=== PATIENT | female | born 1985 | race Caucasian/White ===

== ENCOUNTER → 2023-09-27 10:26 | Outpatient (CLI) | payer OTHER, SELFPAY ==
[2023-09-27 16:27] LABS: Influenza A - CEPHEID Flu A NEGATIVE (NEGATIVE)
[2023-09-27 16:28] LABS: COVID-19 CEPHEID 4-PLEX PCR Negative (Negative); Influenza B - CEPHEID Flu B NEGATIVE (NEGATIVE); Respiratory Syncytial Virus Negative (Negative)
== END ==
PROVIDERS: Referring Provider Physician Assistant Surgical; Visit Provider Physician Assistant Surgical
DX: R05.9 Cough, unspecified (principal)
CPT/HCPCS: 0241U

== ENCOUNTER → 2023-10-21 10:28 | Outpatient (CLI) | payer OTHER, SELFPAY ==
--- NOTE | 2023-10-21 10:31 | DI.MRI.S_ITS ---
PROCEDURE: MR ABDOMEN LIVER PROTOCOL INDICATIONS: LIVER LESION TECHNIQUE: Coronal HASTE, axial 2D FLASH in- and [id number]; axial breath-hold T2 FSE. Dynamic axial VIBE during the administration of contrast; post-contrast coronal VIBE or 2D FLASH with fat saturation from the hepatic dome to the iliac crests. Restricted diffusion weighted imaging and ADC. 20 cc ProHance IV contrast. COMPARISON: None. FINDINGS: Image quality: Diagnostic. Lung bases: Unremarkable. Liver: Segment 8 hemangioma measuring 2.4 x 2 cm, (4/20). No restricted diffusion. Gallbladder: No gallstones or wall thickening. Biliary ducts: No biliary dilation. Pancreas: No ductal dilation. Spleen: Size is within normal limits. Adrenal Glands: No adrenal nodules. Kidneys and Ureters: No hydronephrosis. No solid mass. No complex renal cystic lesion which requires follow up. Stomach and Bowel: Normal colonic caliber, without significant wall thickening. Peritoneum: No abnormal intraperitoneal fluid. No free air. Ventral Wall: No hernia. Abdominal Nodes: No retroperitoneal or mesenteric adenopathy by size criteria. Vessels: Aorta and inferior vena cava are normal in size. Bones: No aggressive osseous abnormality. IMPRESSION: Benign hemangioma in segment 8 of the liver measuring 2.4 cm. Dictated by: Herrera Fierro M.D. on 10/21/2023 at 12:39 Approved by: Herrera Fierro M.D. on 10/21/2023 at 12:44
== END ==
LOC: MRI 10:30
PROVIDERS: PCP Registered Nurse
DX: K76.9 Liver disease, unspecified (principal); D18.09 Hemangioma of other sites
CPT/HCPCS: 74183; A9579

== ENCOUNTER → 2024-05-18 08:50 | Outpatient (CLI) | payer OTHER, SELFPAY ==
--- NOTE | 2024-05-18 08:53 | DI.RAD.S_ITS ---
PROCEDURE: XR CHEST 2V INDICATIONS: Pneumonia, unspecified organism TECHNIQUE: 2 views of the chest were acquired. COMPARISON: None. FINDINGS: Surgical changes and devices: None. Lungs and pleura: Lungs are clear. No pleural effusions or pneumothorax. Mediastinum: Mediastinal contours are normal. Heart size is normal. Bones and chest wall: No suspicious bony abnormalities. Soft tissues appear unremarkable. IMPRESSION: No acute cardiothoracic process. Dictated by: Zoran Rushing M.D. on 05/18/2024 at 13:24 Approved by: Zoran Rushing M.D. on 05/18/2024 at 13:25
== END ==
PROVIDERS: PCP Registered Nurse; Referring Provider Registered Nurse; Visit Provider Registered Nurse
DX: J18.9 Pneumonia, unspecified organism (principal)
CPT/HCPCS: 71046

== ENCOUNTER → 2024-08-12 09:19 | Outpatient (CLI) | payer OTHER, SELFPAY ==
--- NOTE | 2024-08-12 09:21 | DI.MG.S_ITS ---
MM screening mammo BI: 08/12/2024. BI-RADS: 0 CLINICAL: 39-year old female for bilateral screening mammogram. Tyrer-Cuzick lifetime risk of 22.9%. Current reported family history of breast cancer: mother. The patient is status-post reduction mammoplasty. PRIOR EXAMS: 09/13/2021. MAMMOGRAPHY TECHNIQUE: 2D and 3D (tomosynthesis) digital mammographic views obtained, with additional images as needed for full coverage. Current study was also evaluated with a Computer Aided Detection (CAD) system. DENSITY B. There are scattered areas of fibroglandular density. MAMMOGRAPHY FINDINGS Right: Outer Central, Anterior depth: There is a focal asymmetry present with associated calcifications. Additional imaging evaluation needed. Left: No suspicious mass, asymmetry, microcalcification, or other abnormality seen. IMPRESSION: Right (Asymmetry): Outer Central, Anterior depth * Incomplete - Needs additional imaging evaluation. Left * No evidence of malignancy. RECOMMENDATIONS Right: Outer Central, Anterior depth * Further evaluation with diagnostic mammography and diagnostic ultrasound. Ultrasound to be performed only if needed. OVERALL ASSESSMENT CATEGORY BI-RADS-0: Incomplete - Need Additional Imaging Evaluation. ELECTRONICALLY SIGNED: Afia Persaud M.D. on 08/14/2024 at 01:56:46 PM PT Interpreting Station ID: [id number]
[2024-08-12 10:23] LABS: Hemoglobin A1C% w Est Avg Glu 5.2 % (4.0-6.0)
[2024-08-12 10:33] LABS: Alanine Aminotransferase 74 IU/L (<35); Albumin 4.4 g/dL (3.5-5.0); Albumin Globulin Ratio 1.8 (1.0-2.8); Alkaline Phosphatase 53 U/L (38-126); Aspartate Aminotransferase 53 IU/L (14-36); BUN Creatinine Ratio 17.9 (6-22); Bilirubin Total 0.5 mg/dL (0.2-1.3); Blood Urea Nitrogen 14 mg/dL (7-17); Calcium 9.1 mg/dL (8.4-10.2); Carbon Dioxide 25 mmol/L (22-32); Chloride 106 mmol/L (98-107); Estimated Glomerular Filt Rate > 60 mL/min (>60); Globulin 2.5 g/dL (1.7-4.1); Glucose 102 mg/dL (70-99); HEMOLYSIS < 15 (0-50); Potassium 4.3 mmol/L (3.4-5.1); Sodium 139 mmol/L (137-145); Total Protein 6.9 g/dL (6.3-8.2)
[2024-08-12 10:33] LABS: Cholesterol 263 mg/dL (140-199); HDL Cholesterol 56 mg/dL (40-60); LDL Cholesterol Calculated 180 mg/dL (<100); Triglycerides 133 mg/dL (35-150)
[2024-08-12 10:46] LABS: Vitamin D 25 Hydroxy (D3) 46.5 ng/mL (30.0-100.0)
== END ==
PROVIDERS: PCP Nurse Practitioner Family; Referring Provider Nurse Practitioner Family; Visit Provider Nurse Practitioner Family
DX: Z12.31 Encounter for screening mammogram for malignant neoplasm of breast (principal); Z80.3 Family history of malignant neoplasm of breast; Z83.42 Family history of familial hypercholesterolemia
CPT/HCPCS: 36415; 77063; 77067; 80053; 80061; 82306; 83036

== ENCOUNTER → 2024-09-15 12:07 | Outpatient (CLI) | payer OTHER, SELFPAY ==
--- NOTE | 2024-09-15 12:09 | DI.MG.S_ITS ---
MM diagnostic mammo unilat RT: 09/15/2024. BI-RADS: 3 CLINICAL: 39-year old female for right diagnostic mammogram that is a recall from screening on 08/12/2024. Tyrer-Cuzick lifetime risk of 22.9%. Current reported family history of breast cancer: mother. The patient is status-post reduction mammoplasty in 2021. PRIOR EXAMS Mammogram(s): 08/12/2024. MAMMOGRAPHY TECHNIQUE: 2D and 3D (tomosynthesis) digital mammographic views obtained, with additional images as needed for full coverage. Current study was also evaluated with a Computer Aided Detection (CAD) system. DENSITY Right: B. There are scattered areas of fibroglandular density. MAMMOGRAPHY FINDINGS Right: Outer Central: There are probably-benign grouped coarse calcifications. There are two closely adjacent grouped coarse calcifications together spanning 2.2 cm. These are probably benign and related to prior reduction mammoplasty. The previously described associated focal asymmetry did not persist with additional imaging and is consistent with superimposition of normal breast tissue. IMPRESSION: Right (Calcification): Outer Central * Probably Benign. RECOMMENDATIONS Right: Outer Central, Anterior depth * Six month followup with diagnostic mammography. COMMENTS: Findings and recommendations were conveyed to the patient during today's evaluation. OVERALL ASSESSMENT CATEGORY BI-RADS-3: Probably Benign. ELECTRONICALLY SIGNED: Afia Persaud M.D. on 09/15/2024 at 02:53:30 PM PT Interpreting Station ID: [id number]
== END ==
PROVIDERS: PCP Nurse Practitioner Family; Referring Provider Nurse Practitioner Family; Visit Provider Nurse Practitioner Family
DX: R92.1 Mammographic calcification found on diagnostic imaging of breast (principal); N64.89 Other specified disorders of breast; Z80.3 Family history of malignant neoplasm of breast
CPT/HCPCS: 77065; G0279

== ENCOUNTER → 2025-03-26 10:36 | Outpatient (CLI) | payer OTHER, SELFPAY ==
--- NOTE | 2025-03-26 10:37 | DI.MRI.S_ITS ---
MR breast BI wo/w con: 03/26/2025. BI-RADS: 2 CLINICAL: 40-year old female for bilateral diagnostic breast MRI. Current reported family history of breast cancer: mother. The patient is status-post reduction mammoplasty. PRIOR EXAMS Mammogram(s): 09/15/2024, 08/12/2024. MRI TECHNIQUE Bilateral breast MRI was performed on a 1.5 Shannan magnet using a dedicated breast coil with mild compression. Axial T1 and T2 STIR sequences were obtained. Dynamic contrast enhanced VIBRANT fat-suppressed sequences were obtained. Delayed sagittal high resolution or sagittal reconstructed isotropic sequence was also obtained. Subtraction images and maximum intensity projection images were obtained. The study was evaluated using [employer] software. IV Contrast: 20 ml ProHance. FIBROGLANDULAR TISSUE Bilateral: B. Scattered fibroglandular tissue. BACKGROUND PARENCHYMAL ENHANCEMENT Bilateral: Mild symmetrical background parenchymal enhancement. BREAST FINDINGS Bilateral Benign-appearing post-surgical changes noted. There is no suspicious finding with benign findings noted. There are no abnormal axillary or internal mammary lymph nodes. ABDOMEN FINDINGS A benign hemangioma is incidentally noted in the right hepatic lobe. IMPRESSION: * No evidence of malignancy with benign findings. RECOMMENDATIONS Bilateral * Annual screening mammography in five months. OVERALL ASSESSMENT CATEGORY BI-RADS-2: Benign. ELECTRONICALLY SIGNED: Kingsley Pritchard M.D. on 03/26/2025 at 09:09:04 PM PT Interpreting Station ID: [id number]
== END ==
LOC: MRI 10:37
PROVIDERS: PCP Nurse Practitioner Family; Referring Provider Nurse Practitioner Family; Visit Provider Nurse Practitioner Family
DX: N64.89 Other specified disorders of breast (principal); R92.323 Mammographic fibroglandular density, bilateral breasts; D18.03 Hemangioma of intra-abdominal structures; Z80.3 Family history of malignant neoplasm of breast
CPT/HCPCS: 77049; A9579

== ENCOUNTER → 2025-04-19 09:42 | Outpatient (CLI) | payer OTHER, SELFPAY ==
--- NOTE | 2025-04-19 09:46 | DI.MG.S_ITS ---
MM diagnostic mammo unilat RT: 04/19/2025. BI-RADS: 3 CLINICAL: 40-year old female for right diagnostic mammogram that is a follow-up to diagnostic mammogram on 09/15/2024. The patient presents for a follow-up. Tyrer- Cuzick lifetime risk of 22.8%. Current reported family history of breast cancer: mother. The patient is status-post reduction mammoplasty. PRIOR EXAMS Mammogram(s): 09/15/2024, 08/12/2024, 09/13/2021. Breast MRI(s): 03/26/2025. MAMMOGRAPHY TECHNIQUE: 2D and 3D (tomosynthesis) digital mammographic views obtained, with additional images as needed for full coverage. Current study was also evaluated with a Computer Aided Detection (CAD) system. DENSITY Right: B. There are scattered areas of fibroglandular density. MAMMOGRAPHY FINDINGS Right: Outer Central: Correlating with prior imaging concern there are grouped calcifications that are unchanged in size and appearance. These calcifications appear coarse and dystrophic, and may be related to prior reduction mammoplasty. IMPRESSION: Right (Calcification): Outer Central * Probably Benign. RECOMMENDATIONS Right: Outer Central * Six month followup with diagnostic mammography. When the patient returns for short-term unilateral followup, a mammogram for the contralateral breast will also be due. COMMENTS: Findings and recommendations were conveyed to the patient during today's evaluation. OVERALL ASSESSMENT CATEGORY BI-RADS-3: Probably Benign. ELECTRONICALLY SIGNED: Paula Perales M.D. on 04/19/2025 at 12:08:23 PM PT Interpreting Station ID: [id number]
--- NOTE | 2025-04-19 09:47 | DI.US.S_ITS ---
PROCEDURE: US EXTREMITY NONVASC UPPER LT INDICATIONS: ARM LUMP TECHNIQUE: Real-time scanning was performed of the left upper arm , with image documentation. COMPARISON: None. FINDINGS AND IMPRESSION: At the area of palpable abnormality in the left upper arm, there is a circumscribed hyperechoic lesion measuring 1.1 x 0.5 x 1.1 cm , likely a lipoma. Clinical followup is recommended. If there is new or worsening clinical concern, reimaging could be obtained. Dictated by: Hao Reardon M.D. on 04/19/2025 at 11:54 Approved by: Hao Reardon M.D. on 04/19/2025 at 11:54
== END ==
LOC: MAMMO 09:46
PROVIDERS: PCP Nurse Practitioner Family; Referring Provider Nurse Practitioner Family; Visit Provider Nurse Practitioner Family
DX: R92.8 Other abnormal and inconclusive findings on diagnostic imaging of breast (principal); R92.1 Mammographic calcification found on diagnostic imaging of breast; R92.321 Mammographic fibroglandular density, right breast; R22.32 Localized swelling, mass and lump, left upper limb; Z80.3 Family history of malignant neoplasm of breast
CPT/HCPCS: 76882; 77065; G0279